=== PATIENT | male | born 1980 | race Caucasian/White ===

== ENCOUNTER 2016-10-23 10:17 | Emergency (ER) | payer OTHER ==
[~2016-10-23] VITALS: Ht 188 cm; Wt 85.0 kg
[2016-10-23 10:20] VITALS: BP 130/83; PULSE 80; RESP 15; TEMP 97.8; O2SAT 99
[2016-10-23] MEDS ORDERED: ZOLO50TA PO (10:25)
[2016-10-23] MEDS ORDERED: LAMO25 PO (10:25)
[2016-10-23] MEDS ORDERED: IBUP400T20 PO (10:25)
[2016-10-23] MEDS ORDERED: METH500T3 PO (10:25)
[2016-10-23] MEDS ORDERED: KETOROLAC TROMETHAMINE 60 MG/2 ML (IM) VIAL IM ONE (10:45)
[2016-10-23] MEDS ORDERED: ORPHENADRINE INJ 60 MG/2 ML AMP IM ONE (10:45)
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
[2016-10-24] MEDS ORDERED: HYDR-3533 PO (21:51)
== END 2016-10-23 11:12 | disposition home or self-care (01) ==
LOC: NEPB 10:17
DX: M54.6 Pain in thoracic spine (principal); M54.5 Low back pain; Y04.0XXA Assault by unarmed brawl or fight, initial encounter
CPT/HCPCS: 96372; 99283; J1885; J2360

== ENCOUNTER 2016-10-24 18:47 | Emergency (ER) | payer OTHER ==
[~2016-10-24] VITALS: Ht 188 cm; Wt 84.1 kg
[~2016-10-24 18:47] MED LIST: IBUP400T20 PO; LAMO25 PO; METH500T3 PO; ZOLO50TA PO
[2016-10-24 18:51] VITALS: BP 126/72; PULSE 62; RESP 16; TEMP 98.1; O2SAT 96
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
[2016-10-24] MEDS ORDERED: NAPROXEN 500 MG TAB PO ONE (21:45)
[2016-10-24] MEDS ORDERED: HYDR-3533 PO (21:51)
[2016-10-24] MEDS ORDERED: ACETAMINOPHEN/HYDROcodone 325 MG/5 MG TAB PO ONE (22:00)
== END 2016-10-24 22:32 | disposition home or self-care (01) ==
LOC: NEPB 18:47
DX: M54.6 Pain in thoracic spine (principal); Y04.0XXD Assault by unarmed brawl or fight, subsequent encounter
CPT/HCPCS: 72072; 99283